=== PATIENT | male | born 1960 | race Hispanic/Latino ===

== ENCOUNTER → 2019-10-06 | Outpatient (CLI) | payer BC ==
--- NOTE | 2019-10-06 15:38 | Diagnostic Imaging Report ---
Exam: Bilateral knee series Clinical history: Degenerative joint disease Findings: There is no evidence of acute fracture or malalignment. Mild narrowing of bilateral medial joint compartments is noted with marginal osteophytes. There is no evidence of significant joint effusion. The soft tissue is unremarkable. Impression: 1. No radiographic evidence of acute osseous injury. Degenerative joint disease as described. Signed by: Dr. Lucas Atkinson MD on 10/06/2019 3:36 PM
== END ==
LOC: RAD 14:59
PROVIDERS: ATTEND Internal Medicine
DX: M17.0 Bilateral primary osteoarthritis of knee (principal)